=== PATIENT | female | born 1955 | race Hispanic/Latino ===

== ENCOUNTER 2017-10-31 18:01 | Observation (INO) | payer BC, MEDICAID ==
[2017-10-31 19:00] VITALS: BMI 27.4
--- NOTE | 2017-10-31 19:36 | ED PDOC ---
Arrival/HPI - General Chief Complaint: Dizziness/Lightheaded Time Seen by Provider: 10/31/17 19:11 Historian: Patient - History of Present Illness Narrative History of Present Illness (Text): 10/31/17 19:28 Patient is a 62 year old female whose past medical history includes hypertension , gastric ulcer, arthritis, and cardiac ablation, who presents to the emergency department complaining of episodes of chest tightness and associated dizziness. Patient reports that both symptoms occur randomly. She experienced similar symptoms earlier today, which prompted her to visit her PMD, and was strongly advised to come to the emergency department. She is currently asymptomatic. Patient denies fevers, chills, cough, shortness of breath, dyspnea on exertion, abdominal pain, nausea, vomiting, diarrhea, back pain, neck pain, headache, or any other complaint. PMD: Time/Duration: Other (Today) Symptom Onset: Sudden Symptom Course: Intermittent Activities at Onset: Light Context: Home Past Medical History - Provider Review Nursing Documentation Reviewed: Yes - Cardiac Hx Cardiac Disorders: Yes Hx Hypertension: Yes - Pulmonary Hx Respiratory Disorders: No - Neurological Hx Neurological Disorder: No - HEENT Hx HEENT Disorder: No - Renal Hx Renal Disorder: No - Endocrine/Metabolic Hx Endocrine Disorders: No - Hematological/Oncological Hx Blood Disorders: No - Integumentary Hx Dermatological Disorder: No - Musculoskeletal/Rheumatological Hx Musculoskeletal Disorders: No - Gastrointestinal Hx Gastrointestinal Disorders: No - Genitourinary/Gynecological Hx Genitourinary Disorders: No - Psychiatric Hx Psychophysiologic Disorder: Yes Hx Depression: Yes Hx Substance Use: No - Suicidal Assessment Feels Threatened In Home Enviroment: No Family/Social History - Physician Review Nursing Documentation Reviewed: Yes Family/Social History: No Known Family HX Smoking Status: Never Smoked Hx Alcohol Use: No Hx Substance Use: No Hx Substance Use Treatment: No Allergies/Home Meds Allergies/Adverse Reactions: Allergies No Known Allergies Allergy (Verified 10/31/17 18:44) Home Medications: Home Meds Medication Instructions Recorded Confirmed Alprazolam [Xanax] 0.25 mg PO TID 03/19/12 08/05/14 Lansoprazole [Prevacid] 30 mg PO DAILY 03/19/12 08/05/14 Metoprolol Succinate XL [Toprol XL] 25 mg PO DAILY 03/19/12 08/05/14 Review of Systems - Physician Review All systems were reviewed & negative as marked: Yes - Review of Systems Constitutional: absent: Fevers Respiratory: absent: SOB, Cough Cardiovascular: Other (chest tightness). absent: DWYER Gastrointestinal: absent: Abdominal Pain, Diarrhea, Nausea, Vomiting Musculoskeletal: absent: Back Pain, Neck Pain Neurological: Dizziness. absent: Headache Physical Exam Vital Signs Reviewed: Yes Vital Signs Temp Pulse Resp BP Pulse Ox 10/31/17 20:23 98.2 F 53 L 18 142/62 100 10/31/17 18:44 98.2 F 75 16 118/71 100 Temperature: Afebrile Blood Pressure: Normal Pulse: Regular Respiratory Rate: Normal Appearance: Positive for: Well-Appearing Mental Status: Positive for: Alert and Oriented X 3 - Systems Exam Head: Present: Atraumatic, Normocephalic Pupils: Present: PERRL Extroacular Muscles: Present: EOMI Conjunctiva: Present: Normal Mouth: Present: Moist Mucous Membranes Neck: Present: Normal Range of Motion Respiratory/Chest: Present: Clear to Auscultation, Good Air Exchange. No: Respiratory Distress, Accessory Muscle Use Cardiovascular: Present: Regular Rate and Rhythm, Normal S1, S2. No: Murmurs Abdomen: No: Tenderness, Distention, Peritoneal Signs Back: Present: Normal Inspection Upper Extremity: Present: Normal Inspection. No: Cyanosis, Edema Lower Extremity: Present: Normal Inspection. No: Edema Neurological: Present: GCS=15, CN II-XII Intact, Speech Normal Skin: Present: Warm, Dry, Normal Color. No: Rashes Psychiatric: Present: Alert, Oriented x 3, Normal Insight, Normal Concentration Medical Decision Making ED Course and Treatment: 10/31/17 19:28 Impression: Patient is a 62 year old female complaining of episodes of chest tightness and dizziness. Differential Diagnosis included but are not limited to: CAD vs. near vasovagal syncope vs. cardiac arrhythmia vs. anxiety. Plan: -- Head CT without contrast -- EKG -- Cardiac enzymes -- Blood work -- Chest X-ray -- Reassess and disposition Prior Visits: Notes and results from previous visits were reviewed. Progress Notes: 10/31/17 19:43 EKG shows sinus bradycardia at 50 BPM with 1st degree AV block, and non specific ST/T wave changes. Interpreted by me. 10/31/17 19:52 Chest X-ray shows no acute processes. Interpreted by me. 10/31/17 21:[address] Ojeda, who is aware and agrees with plan. Accepts pt in to her service. Pt will go to Telemetry observation for chest pain and dizziness. 10/31/17 21:33 CT Head shows: Brain: There is cerebral and cerebellar cortical volume loss compatible with the patient's age. Scattered low density areas in the periventricular white matter and basal ganglia probably reflect chronic small vessel ischemic changes. Vascular calcifications are present. There is no intracranial hemorrhage or mass. No abnormal extra-axial or parenchymal fluid collections. Posterior fossa is unremarkable. Ventricles: The ventricles and basilar cisterns are prominant likely related to chronic volume loss. Bones/joints: Normal. No acute fracture. Sinuses: Mild mucosal thickening in the ethmoid sinuses present. Mastoid air cells: Normal as visualized. No mastoid effusion. Soft tissues: Normal. IMPRESSION: There are low-attenuation areas in the periventricular white matter and basal ganglia, probably reflecting chronic ischemic changes. However, if there is clinical concern for an acute infarction, followup MRI could be useful. Dictated and Authenticated by: Stephanie Saucedo MD 10/31/2017 9:28 PM Eastern Time ([place] & [place]) - Lab Interpretations Lab Results: 10/31/17 20:35 10/31/17 20:35 Lab Results 10/31/17 20:35: PT 10.8, INR 0.95, APTT 32.5 10/31/17 20:35: WBC 7.5, RBC 4.17, Hgb 13.5, Hct 39.6, MCV 95.0, MCH 32.4, MCHC 34.1, RDW 14.4, Plt Count 179, MPV 10.7 10/31/17 20:35: Sodium 140, Potassium 4.6, Chloride 106, Carbon Dioxide 27, Anion Gap 11, BUN 16, Creatinine 0.7, Est GFR ( Amer) > 60, Est GFR (Non- Af Amer) > 60, Random Glucose 86, Calcium 9.1, Total Bilirubin 0.3, AST 26, ALT 28, Alkaline Phosphatase 79, Lactate Dehydrogenase 365, Total Creatine Kinase 41 , Troponin I < 0.01, Total Protein 7.3, Albumin 4.1, Globulin 3.2, Albumin/ Globulin Ratio 1.3 I have reviewed the lab results: Yes - RAD Interpretation Radiology Orders: 10/31/17 19:19 HEAD W/O CONTRAST [CT] Stat 10/31/17 19:20 CHEST PORTABLE [RAD] Stat Washroom Operator: ED Physician, Radiologist - EKG Interpretation Interpreted by ED Physician: Yes Type: 12 lead EKG - Scribe Statement The provider has reviewed the documentation as recorded by the Scribe River Quinonez Provider Scribe Attestation: All medical record entries made by the Scribe were at my direction and personally dictated by me. I have reviewed the chart and agree that the record accurately reflects my personal performance of the history, physical exam, medical decision making, and the department course for this patient. I have also personally directed, reviewed, and agree with the discharge instructions and disposition. Disposition/Present on Arrival - Present on Arrival Any Indicators Present on Arrival: No History of DVT/PE: No History of Uncontrolled Diabetes: No Urinary Catheter: No History of Decub. Ulcer: No History Surgical Site Infection Following: None - Disposition Have Diagnosis and Disposition been Completed?: Yes Diagnosis: Chest pain, Dizziness Disposition: HOSPITALIZED Disposition Time: 21:28 Patient Problems: Current Active Problems Problem Status Onset Chest pain Acute Dizziness Acute Condition: STABLE Discharge Instructions (ExitCare): Chest Pain (ED) Forms: [employer] (Indonesian)
[2017-10-31 20:38] LABS: HEMOGLOBIN 13.5 g/dL (12.0-16.0); MEAN CORPUSCULAR HEMOGLOBIN 32.4 pg (25.0-35.0); MEAN CORPUSCULAR HGB CONC 34.1 g/dl (31.0-37.0); MEAN PLATELET VOLUME 10.7 fl (7.0-11.0); RBC 4.17 10^6/uL (3.5-6.1); RED CELL DISTRIBUTION WIDTH 14.4 % (11.5-14.5); WHITE BLOOD COUNT 7.5 10^3/ul (4.5-11.0)
[2017-10-31 20:48] LABS: ALB/GLOB RATIO 1.3 (1.1-1.8); ALBUMIN 4.1 g/dL (3.0-4.8); ALT/SGPT 28 U/L (7-56); AST/SGOT 26 U/L (14-36); BLOOD UREA NITROGEN 16 mg/dL (7-21); CALCIUM 9.1 mg/dL (8.4-10.5); GFR NON-AFRICAN AMERICAN > 60; INR 0.95; PARTIAL THROMBOPLASTIN TIME 32.5 Seconds (25.1-36.5); PROTHROMBIN TIME 10.8 SECONDS (9.4-12.5)
[2017-10-31 20:59] LABS: TROPONIN I < 0.01 ng/mL
[2017-11-01 05:29] LABS: TROPONIN I < 0.01 ng/mL
[2017-11-01 07:48] VITALS: BP 138/83; RESP 18; TEMP 97.8; O2SAT 100
--- NOTE | 2017-11-01 08:15 | CT ---
Date of service: 10/31/2017 PROCEDURE: CT HEAD WITHOUT CONTRAST. HISTORY: dizzy COMPARISON: 09/15/2016 TECHNIQUE: Axial computed tomography images were obtained through the head/brain without intravenous contrast. Radiation dose: Total exam DLP = 851 mGy-cm. This CT exam was performed using one or more of the following dose reduction techniques: Automated exposure control, adjustment of the mA and/or kV according to patient size, and/or use of iterative reconstruction technique. FINDINGS: HEMORRHAGE: No intracranial hemorrhage. BRAIN: No mass effect or edema. No atrophy or chronic microvascular ischemic changes. VENTRICLES: Unremarkable. No hydrocephalus. CALVARIUM: Unremarkable. PARANASAL SINUSES: Unremarkable as visualized. No significant inflammatory changes. MASTOID AIR CELLS: Unremarkable as visualized. No inflammatory changes. OTHER FINDINGS: The report concurs with the preliminary [facility] report IMPRESSION: No acute intracranial findings
--- NOTE | 2017-11-01 09:14 | RAD ---
Date of service: 10/31/2017 HISTORY: chest pain COMPARISON: 03/19/2012. FINDINGS: LUNGS: The lungs are hyperinflated and there is peribronchial thickening with chronic changes in both lungs. No focal consolidation. PLEURA: No significant pleural effusion identified, no pneumothorax apparent. CARDIOVASCULAR: Normal. OSSEOUS STRUCTURES: No significant abnormalities. VISUALIZED UPPER ABDOMEN: Normal. OTHER FINDINGS: None. IMPRESSION: No active pulmonary disease. COPD.
[2017-11-01] MEDS: Pantoprazole 40 mg EC Tab PO SCH ×2 (10:07→10:10)
[2017-11-01 11:30] LABS: HDL CHOLESTEROL 57 mg/dL (29-60); IRON 157 ug/dL (45-180)
--- NOTE | 2017-11-01 11:34 | CP.PCM.CON ---
History of Present Illness - History of Present Illness History of Present Illness: Awake, ambulatory, no distress Reason for consultation: Cardiac evaluation of chest tightness and episodes of dizziness. History of hypertension Brief history of present illness: A 62 year old female who came in to the ER due to off and on complaints of dizziness and chest tightness. She attributes symptoms to stress and anxiety due to personal issues and problems. She claims to not sleeping well at night. She has history of hypertension,gastric bypass in 2007, depression, arthritis, cardiac ablation 10 years due to atrial fibrillation at [facility]. She claimed that heart rate was normal and put on low dose Lopressor. Seen and examined by me and Dr. Lopez Review of Systems - Review of Systems All systems: reviewed and no additional remarkable complaints except Review of Systems: as per HPI Past Patient History - Past Social History Smoking Status: Never Smoked - CARDIAC Hx Cardiac Disorders: Yes Hx Hypertension: Yes Other/Comment: cardiac ablation - PULMONARY Hx Respiratory Disorders: No - NEUROLOGICAL Hx Neurological Disorder: No - HEENT Hx HEENT Problems: No - RENAL Hx Chronic Kidney Disease: No - ENDOCRINE/METABOLIC Hx Endocrine Disorders: No - HEMATOLOGICAL/ONCOLOGICAL Hx Blood Disorders: No - INTEGUMENTARY Hx Dermatological Problems: No - MUSCULOSKELETAL/RHEUMATOLOGICAL Hx Musculoskeletal Disorders: No Hx Falls: No - GASTROINTESTINAL Hx Gastrointestinal Disorders: Yes - GENITOURINARY/GYNECOLOGICAL Hx Genitourinary Disorders: No - PSYCHIATRIC Hx Psychophysiologic Disorder: Yes Hx Depression: Yes - SURGICAL HISTORY Hx Surgeries: Yes Hx Gastric Bypass Surgery: Yes Meds Allergies/Adverse Reactions: Allergies Allergy/AdvReac Type Severity Reaction Status Date / Time No Known Allergies Allergy Verified 10/31/17 18:44 - Medications Medications: Current Medications Alprazolam (Xanax) 0.25 mg PO TID [facility] PRN Reason: Protocol Stop: 11/08/17 10:01 Last Admin: 11/01/17 10:07 Dose: 0.25 mg Pantoprazole Sodium (Protonix Ec Tab) 40 mg PO DAILY [facility] Last Admin: 11/01/17 10:10 Dose: Not Given Physical Exam - Constitutional Appears: No Acute Distress - Eye Exam Eye Exam: Normal appearance - ENT Exam ENT Exam: Mucous Membranes Moist - Respiratory Exam Respiratory Exam: Clear to Auscultation Bilateral, NORMAL BREATHING PATTERN - Cardiovascular Exam Cardiovascular Exam: Bradycardia, +S1, +S2 Additional comments: 2nd degree heart block Mobitz 1 - GI/Abdominal Exam GI & Abdominal Exam: Normal Bowel Sounds, Soft - Extremities Exam Extremities exam: Positive for: normal capillary refill - Neurological Exam Neurological exam: Alert, Oriented x3 - Psychiatric Exam Psychiatric exam: Anxious, Depressed - Skin Skin Exam: Intact, Warm Results - Vital Signs Recent Vital Signs: Last Vital Signs Temp 97.8 F 11/01/17 07:47 Pulse 58 L 11/01/17 07:47 Resp 18 11/01/17 07:47 BP 138/83 11/01/17 07:47 Pulse Ox 100 11/01/17 07:47 - Labs Result Diagrams: 10/31/17 20:35 10/31/17 20:35 Labs: Laboratory Results - last 24 hr 11/01/17 04:15 Lactate Dehydrogenase 374 Total Creatine Kinase 38 Troponin I < 0.01 Assessment & Plan - Assessment and Plan (Free Text) Assessment: A 62 year old female who came in to the ER due to off and on complaints of dizziness and chest tightness. She attributes symptoms to stress and anxiety due to personal issues and problems. She claims to not sleeping well at night. She has history of hypertension,gastric bypass 2007,arthritis, Cardiac ablation 10 years due to atrial fibrillation at [facility]. She claimed that heart rate was normal and put on low dose Lopressor. Telemetry showed sinus bradycardia with second degree heart block mobitz 1 and while sleeping heart rate goes down to 32/min. Will hold Lopressor. Holter monitor to evaluate arrythmias. Will order ECHO to evaluate LV function. Denies any symptoms right now. Atypical chest pain, Troponin normal x 2. Review of previous Cardiac work up: 08/05/14- Normal Stress test No recent Echo and cardiac catheterization Plan: Denies any symptoms right now, no distress Heart rate went down to 32/min while sleeping, Sinus bradycardia with 2nd degree heart block Mobitz 1. Hold Lopressor right now. Holter monitor Echo to evaluate LV function Blood pressure stable Patient verbalizing wanted to go home If insisting to go home today, instructed to follow up in office 1-2 weeks Consider Psych consult for depression and sleeplessness Continue current medications Continue current treatment Further recommendations during hospital course Will follow up Plan and treatment discussed with Dr. Lopez Thank you Dr. Ojeda for the opportunity of taking care of Ms. Trish Davila - Date & Time Date: 11/01/17 Time: 07:00
[2017-11-01 11:40] LABS: % IRON SATURATION 49 % (20-55); TOTAL IRON BINDING CAPACITY 322 ug/dL (265-497)
[2017-11-01 11:41] LABS: LDL CHOLESTEROL 109 mg/dL (0-129)
[2017-11-01 16:32] LABS: FOLATE > 20.0 ng/mL
[2017-11-01 16:55] VITALS: PULSE 82
--- NOTE | 2017-11-01 17:10 | CON ---
DATE: 11/01/2017 NEUROLOGY CONSULTATION CHIEF COMPLAINT: Dizziness, near-syncope. HISTORY OF PRESENT ILLNESS: This is a 62-year-old woman with past medical history of coronary artery disease, hypertension, gastric bypass, arthritis, cardiac ablation 10 years ago due to AFib at [facility], came in for dizziness in terms of lightheadedness and chest tightness and she attributed her symptoms to the stress and anxiety due to personal issues going on at home. She states her heart rate was normal, but she was on a low dose Lopressor. Telemetry shows sinus bradycardia with second-degree heart block, Mobitz type 1. While sleeping, heart rate goes down into 32. Her Lopressor has been put on hold by Cardiology. An echocardiogram is supposed to be done. The CAT scan of the head showed no acute intracranial abnormality. There is no focal neurological deficits seen on neuro exam, but she is mildly depressed and possibly needs to see Psych as an outpatient and also for insomnia. REVIEW OF SYSTEMS: Fourteen-point review of systems negative except per the HPI. ALLERGIES: NO KNOWN DRUG ALLERGIES. MEDICATIONS: Reviewed by nurses' reconciliation sheet. PAST MEDICAL HISTORY: As above. FAMILY HISTORY: Noncontributory. LABORATORY DATA: Today's A1c is 5.4. Iron is 157, total IBC is 322, and percent saturation is 49. Rest of her blood work is unremarkable. PHYSICAL EXAMINATION: VITAL SIGNS: Temperature of 97.8, pulse rate of 58, blood pressure 138/73, respiratory rate of 18, oxygen saturation 100% by room air. GENERAL: The patient is sitting up in bed, in no acute distress. HEENT: Atraumatic, normocephalic. PERRLA. Extraocular muscles intact. NECK: Supple. No JVD, no adenopathy noted. LUNGS: Clear to auscultation. No adventitious sounds. HEART: S1, S2. Normal rate and rhythm. No murmurs, rubs, or gallops. ABDOMEN: Soft, nontender, and nondistended. Bowel sounds are present. EXTREMITIES: No clubbing. No cyanosis. Peripheral pulses are 2+ felt bilaterally. NEUROLOGIC: The patient is alert and oriented to person, place, month, and year. Speech is fluent without any errors. Cranial nerves II through XII intact. Motor: Moves all extremities equally. Toes are downgoing bilaterally. Sensory: Light touch, pinprick, proprioception, and vibration are intact. DTRs are 2+ throughout. Coordination: [id number] intact. No dysmetria noted. Gait is deferred for now. IMPRESSION: Her dizziness seems most likely secondary to anxiety, superimposed underlying sinus bradycardia, possibly with second-degree heart block, Mobitz type 1. She has intermittent episodes of bradycardia. Beta-blockers were put on hold. At this time, I would recommend: 1. To follow up with Cardiology's recommendations echocardiogram. 2. She could follow up with us as an outpatient in regards to her dizziness if it continues. I recommend a Psychiatry consult as an outpatient for underlying depression and anxiety. At this time, she is clinically stable. Thank you for this consult. Albert Palma MD
--- NOTE | 2017-11-01 21:42 | CARD ---
APPROVED REPORT Date of service: 10/31/2017 EKG Measurement Heart [id number] <Conclusion> Sinus bradycardia with 1st degree AV block Cannot rule out Anterior infarct, age undetermined Abnormal ECG
--- NOTE | 2017-11-01 23:04 | CON ---
DATE: 11/01/2017 HISTORY OF PRESENT ILLNESS: In short, the patient is 62-year-old female, reported history of depression and insomnia. The patient was admitted on the medical site for evaluation of chest tightness and dizziness. Psych consult was called for evaluation of mood symptoms and the patient has history of depression. The patient was seen and examined today. The patient presented to be alert and oriented, pleasant, cooperative. Personal hygiene is good. The patient has very nice hair cut and manicure. The patient seems to be well related to this screenplay writer and seems to be a fair historian. The patient reported that she has a lot of stress on her shoulder. The patient reported that she is taking care of aged father and her dog has lot of allergies. The patient reported that at times she harleen the stress with alcohol. Sometimes she drinks beer. The patient said that she had history of alcohol abuse in the past, but not anymore, referring that to gastric ulcers. The patient reported that her mood fluctuates, sometimes, she feels depressed, some times she feels okay. The patient adamantly denied any thoughts of harming herself or others. Denied any psychotic symptoms. Denied any hopelessness. The patient reported that financially she is independent. Vital signs seems to be stable. Temperature 97.8, pulse is 50, blood pressure 138/83, respirations 18, oxygen saturation is 100. Medications reviewed. The patient is on Xanax 0.25 mg three times a day. The patient was refusing the Protonix for peptic ulcer. Labs reviewed. Chemistry reviewed and no acute changes. As per history, the patient was admitted to the Psychiatric Inpatient Unit under Dr. Russell's service in 2012 for insomnia and depression, was given Remeron in the past. The patient responded well. The patient also reported that she was on Prozac, but years back. She does not feel that she needs to be on Prozac as of now, but was open to resume Remeron. Risks, benefits and alternatives discussed with the patient. The patient is willing to be on that medication. MENTAL STATUS EXAMINATION: The patient is noted to be alert and oriented, good personal hygiene. Good eye contact. Mood described " I have my moments." Affect was reactive, mood congruent. Thought process coherent and goal directed. Thought content, the patient denied visual, auditory, tactile hallucinations. Denied paranoid ideation. The patient denied thoughts of harming herself or others. Denied intent or plan. Insight and judgment seems to be fair. Impulses are well controlled. IMPRESSION: Rule out mood disorder due to general medical condition, rule-out insomnia. PLAN: The patient ask for medication for insomnia. Remeron was offered. Risks, benefits, alternatives discussed. The patient is willing to try that medication. At the same time, the patient reported that she wants to be discharged today. I discussed with Dr. Ojeda, advised to start Remeron and titrate accordingly. Meanwhile, the patient pose no imminent danger to self or others. The patient denied any aggressive feelings. Denied being depressed as of now. This screenplay writer will sign off. Should you have any questions, give me a call back. Thank you very much for letting me participate in the care of your patient. The patient also does not want to be followed up with the psychiatrist in the community. Raya Godwin MD
--- NOTE | 2017-11-02 08:18 | CON ---
DATE: 11/01/2017 REASON FOR CONSULTATION: Cardiac evaluation, chest tightness, dizziness. SUBJECTIVE: Patient was seen. Discussed with the patient. Holter monitor was placed. Patient has Mobitz type 2. Arrangement has been made to return the Holter tomorrow at 2 p.m., and we will follow up in office, as patient wanted to go home. 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 So, we will have a 24-hour Holter with further recommendation after the Holter monitor. Thank you, Dr. Ojeda, for providing us the opportunity in taking care of the patient, Trish Davila. Hari Lopez MD
== END 2017-11-01 17:18 | disposition home or self-care (01) ==
LOC: ED 18:01 → ERH 21:24 → 3RNO 11-01 01:21
PROVIDERS: ADMIT Internal Medicine; ATTEND Internal Medicine
DX: I44.1 Atrioventricular block, second degree (principal); I25.10 Atherosclerotic heart disease of native coronary artery without angina pectoris; I48.91 Unspecified atrial fibrillation; I10 Essential (primary) hypertension; F06.4 Anxiety disorder due to known physiological condition; F32.9 Major depressive disorder, single episode, unspecified; R42 Dizziness and giddiness; Z98.84 Bariatric surgery status
CPT/HCPCS: 36415; 70450; 71045; 80053; 80061; 82550; 82607; 82746; 83036; 83540; 83550; 83615; 84443; 84484; 85027; 85610; 85730; 93005; G0378